=== PATIENT | male | born 1980 | race Hispanic/Latino ===

== ENCOUNTER 2022-06-07 13:59 | Emergency (ER) | payer SELFPAY ==
[2022-06-07 14:50] LABS: #Basophils 0.1 10x3/uL (0.0-0.2); #Eosinphils 0.1 10x3/uL (0.0-0.5); #Monocytes 0.5 10x3/uL (0.0-1.1); %Basophils 0.7 % (0.0-2.0); %Eosinophils 1.3 % (0.0-6.0); %Lymphocytes 34.4 % (18.0-47.0); %Monocytes 7.3 % (0.0-10.0); Hemoglobin 17.3 g/dL (13.5-17.5); Mean Corpuscular HGB CONC 33.9 g/dL (32.0-36.0); Mean Corpuscular Hemoglobin 29.5 pg (27.0-33.0); Mean Corpuscular Volume 87.2 fl (81.2-95.1); Mean Platelet Volume 12.4 fl (7.4-10.4); Platelet Count 171 10x3/uL (150-450); RBC Distribution Width 13.6 % (11.5-14.5); Red Blood Cell (RBC) Count 5.86 10x6/uL (4.32-5.72); White Blood Cell (WBC) Count 7.1 10x3/uL (3.5-10.5)
[2022-06-07 15:02] LABS: ALT (SGPT) 53 U/L (8-55); AST (SGOT) 27 U/L (5-34); Albumin 4.1 g/dL (3.5-5.0); Alkaline Phosphatase 68 U/L (40-110); Anion Gap 11 mmol/L (10-20); BUN (Urea Nitrogen) 13 mg/dL (8.9-20.6); Bilirubin, Total 0.3 mg/dL (0.2-1.2); Calc. Creatinine Clearance 0 mL/min (70-130); Calcium 9.6 mg/dL (7.8-10.44); Carbon Dioxide 31 mmol/L (22-29); Chloride 105 mmol/L (98-107); Estimated GFR 49; Globulin 3.4 g/dL (2.4-3.5); Glucose 87 mg/dL (70-105); Protein, Total 7.5 g/dL (6.0-8.3); Sodium 143 mmol/L (136-145)
[2022-06-07] MEDS ORDERED: Ondansetron ODT 4 MG TAB ONE (16:16)
[2022-06-07] MEDS ORDERED: Ibuprofen 100 MG/5 ML UDCUP ONE (16:17)
[2022-06-07 16:46] LABS: SARS-CoV-2 NAA Rapid Test Not Detected (NotDetected)
[2022-06-07] MEDS ORDERED: Acetaminophen 500 MG TAB ONE (17:00)
[2022-06-07 17:51] LABS: Bilirubin Neg (Negative); Blood, Urine Negative (Negative); Clarity Clear (Clear); Glucose, Urine (Dipstick) Normal (Negative); Ketone, Urine Negative (Negative); Leukocyte 500 (Negative); Nitrite Negative (Negative); Protein, Urine (Dipstick) 15 mg/dl (Neg-Trace); Urobilinogen Normal mg/dL (Less than 2); pH, Urine 6.5 (5.0-9.0)
[2022-06-07 18:30] LABS: Bacteria/HPF None Seen HPF (None Seen); RBC/HPF 0-3 HPF (0-3)
== END 2022-06-07 19:21 | disposition home or self-care (01) ==
LOC: CSHERS 13:59
DX: N30.00 Acute cystitis without hematuria (principal); B34.9 Viral infection, unspecified; Z20.822 Contact with and (suspected) exposure to COVID-19; J45.909 Unspecified asthma, uncomplicated
CPT/HCPCS: 80053; 81003; 81015; 85025; 87086; 99284; Q0162

== ENCOUNTER 2025-05-20 11:59 | Outpatient (CLI) | payer OTHER ==
[2025-05-20 13:17] LABS: #Basophils 0.05 10x3/uL (0.0-0.2); #Eosinophils 0.09 10x3/uL (0.0-0.5); #Monocytes 0.71 10x3/uL (0.0-1.1); #Neutrophils 6.46 10x3/uL (1.5-8.4); %Basophils 0.5 % (0.0-2.0); %Eosinophils 0.9 % (0.0-6.0); %Lymphocytes 27.0 % (18.0-47.0); %Monocytes 7.1 % (0.0-10.0); %Neutrophils 64.2 % (40.0-75.0); Hematocrit 50.0 % (38.8-50.0); Hemoglobin 16.4 g/dL (13.5-17.5); Mean Corpuscular Hemoglobin 28.9 pg (27.0-33.0); Mean Corpuscular Volume 88.0 fL (81.2-95.1); Platelet Count 175 10x3/uL (150-450); Red Blood Cell (RBC) Count 5.68 10x6/uL (4.32-5.72); White Blood Cell (WBC) Count 10.05 10x3/uL (3.5-10.5)
[2025-05-20 13:38] LABS: Anion Gap 15 mmol/L (10-20); BUN (Urea Nitrogen) 12 mg/dL (8.9-20.6); Calc. Creatinine Clearance 0 mL/min (70-130); Calcium 9.6 mg/dL (7.8-10.44); Carbon Dioxide 23 mmol/L (22-29); Chloride 107 mmol/L (98-107); Glucose 91 mg/dL (70-105); Potassium 4.0 mmol/L (3.5-5.1); Sodium 141 mmol/L (136-145)
== END 2025-05-20 12:00 | disposition home or self-care (01) ==
LOC: CSHLAB 11:59
PROVIDERS: ATTEND Specialist
DX: Z01.818 Encounter for other preprocedural examination (principal); K80.20 Calculus of gallbladder without cholecystitis without obstruction
CPT/HCPCS: 80048; 85025; 93005; 93010

== ENCOUNTER 2025-05-23 07:38 | Day surgery (SDC) | payer OTHER ==
[2025-05-20 12:19] VITALS: BMI 36.4
[2025-05-23] MEDS ORDERED: Ketorolac Tromethamine 30 MG (1 mL) VIAL ONE (08:07)
[2025-05-23] MEDS ORDERED: Acetaminophen 500 MG TAB ONE (08:07)
[2025-05-23] MEDS ORDERED: Rocuronium Bromide 10 MG/ML (10ML VIAL) ONE ×2 (09:03→10:26)
[2025-05-23] MEDS ORDERED: PROPOFOL 40 ML ONE (09:03)
[2025-05-23] MEDS ORDERED: CEFAZOLIN 2 GM VIAL ONE (09:52)
[2025-05-23] MEDS ORDERED: Bupivacaine/Epinephrine 0.25% 30 ML VIAL ONE (09:52)
[2025-05-23] MEDS ORDERED: Ondansetron PF 4 MG/2 ML Vial ONE ×2 (10:26→12:12)
[2025-05-23] MEDS ORDERED: SUGAMMADEX SODIUM 200 MG/2 ML VIAL ONE (10:26)
[2025-05-23] MEDS ORDERED: Glycopyrrolate 0.2 MG/ML 5 ML SYRINGE ONE (10:33)
[2025-05-23] MEDS ORDERED: HYDROmorphone 0.5 MG/0.5 ML SYRINGE ONE (10:57)
[2025-05-23] MEDS ORDERED: hydrALAZINE 20 MG/ML VIAL ONE (11:55)
[2025-05-23] MEDS ORDERED: oxyCODONE 5 MG TAB ONE (13:25)
== END 2025-05-23 14:44 | disposition home or self-care (01) ==
LOC: CSHSDC 07:38
PROVIDERS: ATTEND Specialist
PROC: 0FT44ZZ Resection of Gallbladder, Percutaneous Endoscopic Approach (ICD-10-PCS; principal; 2025-05-23)
DX: K80.10 Calculus of gallbladder with chronic cholecystitis without obstruction (principal); I10 Essential (primary) hypertension; E78.00 Pure hypercholesterolemia, unspecified; F32.A Depression, unspecified; F41.9 Anxiety disorder, unspecified; Z79.899 Other long term (current) drug therapy
CPT/HCPCS: 88304; C1889; J0360; J1100; J1171; J1885; J2250; J2550; J2704; J3010; S2900